=== PATIENT | female | born 1960 | race Caucasian/White ===

== ENCOUNTER 2024-09-23 07:16 | Day surgery (SDC) | payer OTHER, SELFPAY ==
--- OUTSIDE RECORDS SUMMARY | 2024-09-07 11:02 | XMS_ITS ---
Author Organization [facility] Address [address] [place] [address] Care Team Providers Care Clinical Dietetic Technician Name Role Phone Eda Adams Primary Care Provider Gilson Forrest [phone] Allergies Allergen (clinical drug ingredient) Drug/Non Drug Allergy documented on EMR Reaction Allergy Type Onset Date Status Substance with sulfonamide structure and antibacterial mechanism of action (substance) Sulfa Antibiotics closes airway Drug Allergy Active codeine Codeine closes airway Drug Allergy Act carola REASON FOR VISIT patient presents today for COLON SCREENING Social History Tobacco Use: Social History Observation Description Date Details (start date - stop date) Never Smoker NA - NA Tobacco Use/Smoking Question Answer Notes Patient is a nonsmoker Alcohol Screen Question Answer Notes Did you have a drink contain ing alcohol in the past year? Yes How often did you have a dri nk containing alcohol in the past year? Monthly or less (1 point) How many drinks did you have on a typical day when you were drinking in the past year? 1 or 2 drinks (0 point) How often did you have 6 or more drinks on one occasion in the past year? Never (0 point) Points 1 Interpretation Negative Section Notes: Occ alcohol, nonsmoker Problems Problem Type SNOMED Code ICD Code Onset Dates Problem Status W/U Status Risk Notes Problem Colon cancer screening (306262464) Colon cancer screening (Z12.11) Active confirmed Problem Pre-procedure evaluation check (674127679) Encounter for other preprocedural examination (Z01.818) Active confirmed Vital Signs Blood pressure systolic 00 mm Hg 06/16/19 25 Blood pressure diastolic 00 mm Hg 025 Height 5 ft 5.5 in in 06/16/2024 Weight 152 lbs 06/16/2024 BMI 24.91 kg/m2 06/16/2024 Encounters Encounter Location Date Provider Diagnosis [facility] [address] [facility] [address] [place] [address] 06/16/2024 Gilson Alston Colon cancer screeni ng Z12.11 and Encounter for other preprocedural examination Z01.818 Assessments Encounter Date Diagnosis (ICD Code) Assessment Notes Treatment Notes Treatment Clinical Notes Section Notes 06/16/2024 Colon cancer screening (ICD-10 - Z12.11) Overall, Kallie appears quite well. Given her age, good clinical appearance, and her last colonoscopy being over 10 years ago, I did recommend a followup colonoscopy for further screening process. We did review the rationale for that in regard to colon cancer prevention. Full consent was obtained for this, including risks of bleeding and perforation. The procedure will be done with monitored anesthesia care. Kallie was comfortable with this plan. Thank you again for allowing me to participate in Kallie's care. I shall continue to keep you advised of her progress. 06/16/2024 Encounter for other preprocedural examination (ICD-10 - Z01.818) Overall, Kallie appears quite well. Given her age, good clinical appearance, and her last colonoscopy being over 10 years ago, I did recommend a followup colonoscopy for further screening process. We did review the rationale for that in regard to colon cancer prevention. Full consent was obtained for this, including risks of bleeding and perforation. The procedure will be done with monitored anesthesia care. Kallie was comfortable with this plan. Thank you again for allowing me to participate in Kallie's care. I shall continue to keep you advised of her progress. Plan Of Treatment Future Test Test Name Order Date COLONOSCOPY 06/16/2024 Next Appt Details Follow Up: prn, Reason: Provider Name:Gilson Alston , 09/23/2024 08:30:00 AM, [address] [place] [address] , [place], [place], [phone], Progress Notes * JOSSIE BUCKOB:1960 ( 64 yo F)Acc No.[id number]:06/16/2024 Progress Notes Patient:?KALLIE BUCK Provider:?Gilson Alston MD :1960???Age:64 Y???Sex:Female D ate:06/16/2024 Address:[address] [place], [place] [id number] Pcp:Eda Adams Subjective: * Chief Complaints: * ???patient presents today fo r COLON SCREENING * HPI: ???incontinence:? I saw Kallie in the office today for evaluation of colorectal cancer screening. ?As you know, Kallie is a healthy 64-year-old female who presently feels very well. She describes having had a negative screening colonoscopy at approximately age 51 in [place]. She enjoys a good appetite and denies any significant heartburn or dysphagia. Her bowel movements are somewhat constipated, but as long as she drinks enough water during the day and eats enough dietary fiber her bowel movements become much more regular and comfortable. She denies any hematochezia nor melena. She denies abdominal pain, jaundice, or unintentional weight loss. She describes that her father had some type of colon resection in his 50s but is not certain as to whether or not it was for cancer. * ROS:?General/Constitutional:?Change in appetite?denies.?Chills?denies.?Fatigue?denies.?Ophthalmologic:?Comments?all negative.?ENT:?Comments?all negative.?Respiratory:?hemoptysis?denies.?Cough?denies.?Cardiovascular:?Chest pain?denies.?Orthopnea?denies.?Gastrointestinal:?Comments?See HPI for details.?Genitourinary:?Hematuria?denies.?Dysuria?denies.?Musculoskeletal:?Painful joints?denies.?Weakness?denies.?Skin:?Itching?denies.?Rash?denies.?Neurologic:?Headache?denies.?Seizures?denies.?Psychiatric:?Comments?all negative.? * Medical History:? * Surgical History:?Right thum b reconnected severed tendon * Hospitalization/Major Diagno stic Procedure:?No Hospitalization History. * Family History:?Father: dece ased, Colon resection for possible cancer in his late 50's.?Mother: .?Siblings: , liver failure pancreatitis, diagnosed with Colon polyps.? * Social History:?Tobacco Use:?Tobacco Use/Smoking?Patient is a?nonsmoker.?Drugs/Alcohol:?Alcohol Screen?Did you have a drink containing alcohol in the past year??Yes,?How often did you have a drink containing alcohol in the past year??Monthly or less (1 point), How many drinks did you have on a typical day when you were drinking in the past year??1 or 2 drinks (0 point),?How often did you have 6 or more drinks on one occasion in the past year??Never (0 point),?Points?1,?Interpretation?Negative.?Miscellaneous:?Marital status: . 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 ???Occ alcohol, nonsmoker. * Medications:?None * Allergies:?Sulfa Antibiotics : closes airwayCodeine: closes airwayyes[Allergies Verified] Objective: * Vitals:?Wt: 152 lbs, Ht: 5 f t 5.5 in, BMI:24.91 Index, BP: 00/00 mm Hg. * Examination: ???General Examination: ?GENERAL APPEARANCE:?pleasant, well nourished, well developed, in no acute distress.?EYES:?sclera non-icteric.?ORAL CAVITY:?mucosa moist.?NECK/THYROID:?no cervical lymphadenopathy, neck supple.?SKIN:?nonjaundiced, no spider angiomata.?HEART:?S1, S2 normal.?LUNGS:?clear to auscultation bilaterally.?ABDOMEN:?normal bowel sounds, no guarding or rigidity, no guarding or rigidity, no masses palpable, soft, nontender, nondistended.?EXTREMITIES:?no edema.?NEUROLOGIC:?alert and oriented.? Assessment: * Assessment: 1.?Encounter for other prepr ocedural examination - Z01.818 (Primary)?2.?Colon cancer screening - Z12.11? Overall, Kallie appears quit e well. Given her age, good clinical appearance, and her last colonoscopy being over 10 years ago, I did recommend a followup colonoscopy for further screening process. We did review the rationale for that in regard to colon cancer prevention. Full consent was obtained for this, including risks of bleeding and perforation. The procedure will be done with monitored anesthesia care. Kallie was comfortable with this plan. Thank you again for allowing me to participate in Kallie's care. I shall continue to keep you advised of her progress. Plan: * Treatment: * Procedure Codes:?3017F COLOR ECTAL CA SCREEN DOC [id number] TOBACCO NON-[id number] BP SCR NOT PRFRM REC REASON NOS * Follow Up:?prn * * Sign off status: Completed true * Provider:?Gilson Alston MD Date:? 025 Generated for Talia peters/Joe/Roroitting on:?09/07/2024 11:02 AM EDT History and Physical Notes * HPI (History of Present Illness) Category Sub-Category Detail Notes Category Not es incontinence I saw Kallie in the office today for evaluation of colorectal cancer screening. As you know, Kallie is a healthy 64-year-old female who presently feels very well. She describes having had a negative screening colonoscopy at approximately age 51 in [place]. She enjoys a good appetite and denies any significant heartburn or dysphagia. Her bowel movements are somewhat constipated, but as long as she drinks enough water during the day and eats enough dietary fiber her bowel movements become much more regular and comfortable. She denies any hematochezia nor melena. She denies abdominal pain, jaundice, or unintentional weight loss. She describes that her father had some type of colon resection in his 50s but is not certain as to whether or not it was for cancer. Examination Category Sub-Category Detail Notes Category Not es General Examination GENERAL APPEARANCE: pleasant , well nourished, well developed, in no acute distress HEAD: EYES: sclera non-icteric EARS: NOSE: THROAT: NECK/THYROID: no cervical lymphade nopathy, neck supple HEART: S1, S2 normal CHEST: LUNGS: clear to auscultatio n bilaterally ABDOMEN: normal bowel sounds, no guarding or rigidity, no guarding or rigidity, no masses palpable, soft, nontender, nondistended NEUROLOGIC: alert and oriented SKIN: nonjaundiced, no spi eve angiomata EXTREMITIES: no edema PERIPHERAL PULSES: BACK: BREASTS: MUSCULOSKELETAL: MALE GENITOURINARY: LYMPH NODES: RECTAL EXAM: FEMALE GENITOURINARY: ORAL CAVITY: mucosa moist
--- OUTSIDE RECORDS SUMMARY | 2024-09-07 11:03 | XMS_ITS | Patient Health Record ---
Author Organization [facility] Address [address] [place] [address] Care Team Providers Care Marketing Community Liaison Name Role Phone Eda Adams Primary Care Provider UnavailGilson Fernandez [phone] Allergies Allergen (clinical drug ingredient) Drug/Non Drug Allergy documented on EMR Reaction Allergy Type Onset Date Status Substance with sulfonamide structure and antibacterial mechanism of action (substance) Sulfa Antibiotics closes airway Drug Allergy Active codeine Codeine closes airway Drug Allergy Act carola Reason For Referral No Information Social History Tobacco Use: Social History Observation [...] Status Risk Notes Problem Colon cancer screening ([id number]) Colon cancer screening (Z12.11) Active confirmed Problem Pre-procedure evaluation check (847608671) Encounter for other preprocedural examination (Z01.818) Active confirmed Vital Signs Blood pressure diastolic 00 mm Hg 06/16/2024 Height 5 ft 5.5 in in 06/16/2024 Blood pressure systolic 00 mm Hg 06/16/2024 Weight 152 lbs 06/16/2024 BMI 24.91 kg/m2 06/16/2024 Encounters Encounter Location Date Provider Diagnosis [facility] [address] [place] [address] 06/16/2024 Gilson Alston Colon cancer screeni ng [...] Order Date COLONOSCOPY 06/16/2024 Next Appt Details Provider Name:Gilson Alston , 09/23/2024 08:30:00 AM, [address] [facility] , [place], [place], [id number], Insurance Providers Payer Name Payer Address Payer Phone Subscriber Number Group Number Insured Name Patient Relationship to Insured Coverage Start Date Coverage End Date [facility] [address] [place] [address] [id number] KALLIE BUCK Self - patient is the insured Medical (General) History Medical History History ICD Code Palpitations Denies PR,DM,CVA,Lung disease,renal dise ase Negative colonoscopy at age 51 Surgical History Surgery Date(Month/Year) Right thumb reconnected severed tendon
[2024-09-21 11:58] VITALS: BMI 25.3
[2024-09-23 07:47] VITALS: BMI 26.5
[2024-09-23 07:59] VITALS: BP 107/52; PULSE 58; RESP 16; TEMP 36.8; O2SAT 99
[2024-09-23] MEDS: Lactated Ringers 1,000 ML 100 ML IVCONT (08:12)
--- NOTE | 2024-09-23 08:30 | HO.ANESPROP2 ---
[facility] Past Medical History Medical History Palpitations Functional capacity: independent ambulation Surgical History Surgical History H/O colonoscopy Hx of thumb surgery History of Problems with Anesthesia: No Social History Social History Household Members Other:: live alone Are you a primary healthcare facility administrator to a significant other at home: No Do you presently have visiting nurse or other home services: No Patient Tobacco Use Status: Never used Tobacco Use of substances other than those prescribed or required for medical reasons: No Have you been hit, kicked, punched, or otherwise hurt by someone within the past year? If so, by whom?: No Are you DNR?: No Advance Directives: No Advance Directives Information Provided: Yes Patient : No Meds Allergies Allergy/AdvReac Type Severity Reaction Status Date / Time codeine Allergy Anaphylaxis Verified 09/21/24 11:57 Sulfa (Sulfonamide Allergy Anaphylaxis Verified 09/21/24 11:57 Antibiotics) Active Medications: Current Medications Lactated Ringer's (Lr) 1,000 mls @ 100 mls/hr IVCONT .Q10H HERB Last Admin: 09/23/24 08:12 Dose: 100 mls/hr Sodium Biphosphate/Sodium Phosphate (Sodium Phosphate,Mcclain-Dibasic 133 Ml Enema) 133 ml WI ONCE PRN PRN Reason: Poor Colonoscopy Prep Results Home Medications ?Medication ?Instructions ?Recorded ?Confirmed ?Last Taken ?Type No Known Home Meds 09/21/24 09/21/24 Unknown History Exam Height,Weight and Vital Signs: Height 5 ft 5 in Weight 72.2 kg Last Vital Signs Temp 98.3 F 09/23/24 07:59 Pulse 58 09/23/24 07:59 Resp 16 09/23/24 07:59 BP 107/52 L 09/23/24 07:59 Pulse Ox 99 09/23/24 07:59 O2 Del Method Room Air 09/23/24 07:59 Airway Mallampati Class: II TM Dist: >3cm Neck ROM: Full Loose/Missing/Broken Teeth: No Heart: RRR Lungs: CTA Assessment and Plan Assessment Anesthesia Assessment: Anesthesia Plan Discussed and Chart Reviewed Final Anesthetic Review History of Problems with Anesthesia: No NPO: Yes ASA Class: II Final Preanesthetic Review: Meds/Allgs Chart Reviewed, Consent Obtained/Reviewed and Anes Risks/Benef Reviewed Patient Risk: Low Procedure Risk: Low Anesthetic Plan Anesthetic Plan: MAC: Disposition: Standard PACU
[2024-09-23 09:59] VITALS: BP 115/53; PULSE 51; RESP 18; TEMP 36.5; O2SAT 98
--- NOTE | 2024-09-23 10:05 | PM.OP ---
Brief Operative Note Date of Service: 09/23/24 Pre-op diagnosis: Screening Post-op diagnosis: other (Polyps) Procedure: Colonoscopy to the cecum with bx/removal of polyp, cold snare polypectomy, and hot snare polypectomy in proximal Ascending colon Surgeon: Gilson Alston MD Anesthesia: MAC Was an Trailer Technician used for this Procedure?: No Estimated blood loss (mL): 2.0 Pathology: other (A. Transverse colon polyp B. Cecal polyp C. Proximal ascending colon polyp) Condition: stable Disposition: PACU
[2024-09-23 10:14] VITALS: BP 110/61; PULSE 55; RESP 18; O2SAT 98
--- NOTE | 2024-09-23 10:20 | OP_ITS ---
DATE OF SERVICE: 09/23/2024 SURGEON: Gilson Alston MD INDICATIONS: The patient presents for evaluation of colorectal cancer screening. Full consent was obtained from her for this, including risks of bleeding and perforation. PREOPERATIVE DIAGNOSIS: Colorectal cancer screening. POSTOPERATIVE DIAGNOSIS: PROCEDURE PERFORMED: Colonoscopy to the cecum with hot snare polypectomy, biopsy and removal of polyp, and cold snare polypectomy. ESTIMATED BLOOD LOSS: COMPLICATIONS: ANESTHESIA: Medication used, monitored anesthesia care. ASSISTANTS: SPECIMENS: POSTOPERATIVE DIAGNOSES: Colorectal cancer screening, colon polyps, melanosis coli, diverticulosis, and internal hemorrhoids. DESCRIPTION OF PROCEDURE: The patient was placed in the left lateral decubitus position. The digital rectal exam revealed no abnormalities. The Olympus video pediatric colonoscope was entered into the rectum and advanced easily to the cecum. Once in the cecum, I did identify cecal pouch with appendiceal orifice and a normal-appearing ileocecal valve. There was transillumination of light deep in the right lower quadrant. The entire cecum was well visualized and appeared normal although the mucosa was consistent with a melanosis coli. In the cecum, there was a 3 mm polyp, which was biopsied and completely removed with cold biopsy forceps. The scope was then slowly withdrawn assessing all mucosal surfaces carefully. Preparation was excellent. In the very proximal ascending colon, there was a flat, but raised approximately 4 mm x 12 mm polyp, which was removed in piecemeal fashion with hot snare polypectomy with pieces recovered by suction. The polypectomy site appeared clean, without any sign of residual polyp nor bleeding. In the transverse colon, there was an approximately 5 or 6 mm polyp, which was removed by cold snare polypectomy, recovered by suction. The polypectomy site appeared clean, without any sign of residual polyp nor significant bleeding. I did not visualize any other polyps, colitis, nor angiodysplasia. Again, there was melanosis coli throughout the colon. There was a mild amount of sigmoid diverticulosis. In the rectum, scope was retroflexed visualizing internal hemorrhoids, but no other pathology. The rectal mucosa appeared normal. Scope was straightened and withdrawn the patient. She tolerated the procedure well and was returned to recovery area in stable condition. IMPRESSION: 1. Colon polyps. 2. Melanosis coli. 3. Diverticulosis. 4. Internal hemorrhoids. PLAN: The results of the pathology will be checked. If the larger polyp in the proximal ascending colon is adenomatous or a serrated polyp, I would recommend a repeat colonoscopy within 1 year. She was advised not to use any aspirin and NSAIDs for at least a week. She will otherwise see me in the interim on a p.r.n. basis. MD LESLIE Flanagan/MJ / [phone]
[2024-09-23 10:28] VITALS: BP 110/65; PULSE 54; RESP 18; TEMP 36.4; O2SAT 98
== END 2024-09-23 11:03 | disposition home or self-care (01) ==
PROVIDERS: Visit Provider Internal Medicine
PROC: 0DJD8ZZ Inspection of Lower Intestinal Tract, Via Natural or Artificial Opening Endoscopic (ICD-10-PCS; CPT 45378; principal; 2024-09-23 08:30)
DX: Z12.11 Encounter for screening for malignant neoplasm of colon (principal); Z83.719 Family history of colon polyps, unspecified; D12.0 Benign neoplasm of cecum; D12.2 Benign neoplasm of ascending colon; D12.3 Benign neoplasm of transverse colon; K57.30 Diverticulosis of large intestine without perforation or abscess without bleeding; K64.8 Other hemorrhoids; K63.89 Other specified diseases of intestine; R00.2 Palpitations; Z98.890 Other specified postprocedural states; Z88.2 Allergy status to sulfonamides
CPT/HCPCS: 45385; 45380; 88305; J2003; J2704

== ENCOUNTER → 2025-04-27 10:05 | Outpatient (REF) | payer OTHER, SELFPAY ==
--- NOTE | 2025-04-27 10:10 | CA_ITS ---
Transthoracic Echocardiogram Patient (Last, First, Middle): Kallie Andrade, Gender: F Date of : 1960 Age: 65 Procedure Date: 04/27/2025 Procedure Type: Transthoracic Echocardiogram Location: OP Height: 165.1 cm Weight: 71.67 kg BSA: 1.79 m2 Heart Rate: bpm BP: 120 / 64 mmHg Lead Android Developer: KADIE Referring MD: Eda Adams MD Symptoms: PALPITATIONS, HEART MURMUR Study Quality: Adequate ECG Rhythm: Sinus Conclusions: - The left ventricular systolic function is normal. The calculated ejection fraction is 66% by biplane method. - No obvious valvular pathology seen on this study. - Small plaque is seen in the sino tubular ridge. Findings Left Ventricle Normal left ventricular cavity size. There is normal left ventricular wall thickness. The left ventricular systolic function is normal. The calculated ejection fraction is 66% by biplane method. There is no evidence of regional wall motion abnormalities. Diastolic function is normal for age. Right Ventricle Normal right ventricular cavity size and systolic function. Atria Both atria are normal in size. Aortic Valve There is a normal trileaflet aortic valve. There is no aortic valve stenosis. There is no aortic valve regurgitation. Mitral Valve The mitral valve appears normal. There is no mitral valve regurgitation. There is no mitral valve stenosis. Pulmonic Valve The pulmonic valve is likely normal. Tricuspid Valve There is trace tricuspid valve regurgitation. There is no evidence of pulmonary hypertension. Great Vessels The asc aorta is normal in size. Small plaque is seen in the sino tubular ridge. Venous The inferior vena cava is normal in size and collapses greater than 50% with inspiration. Pericardium/Pleural There is no evidence of pericardial effusion. Prior Study Comparison No prior study available for comparison. Recommendations, Care & Conclusions No obvious valvular pathology seen on this study. Measurements 2D Linear Measurements IVSd: 0.86 0.6-0.9/0.6-1.0 cm LVIDd: 4.78 3.9-5.3/4.2-5.9 cm LVIDd Index: 2.67 2.4-3.2/2.2-3.1 cm/m2 LVIDs: 2.87 2.0-3.6 cm LVPWd: 0.82 0.7-1.1 cm LA Diam: 3.40 2.7-3.8/3.0-4.0 cm LAIDs Index: 1.90 1.5-2.3 cm/m2 LV Mass: 166.40 67-162/88-224 g LV Mass Index: 92.96 43-95/49-115 g/m2 LVOT Diam: 1.90 3.0+(-)1.3 cm 2D Systolic Function EF 4C: 65.60 >55% EF 2C: 67.70 >55% EF BiP: 65.90 >55% Mitral Valve MV Pk E: 0.81 MV PK A: 0.73 MV Decel Time: 172.00 E/A: 1.10 E'Lateral: 8.16 E'Medial: 7.40 E/E' Med: 10.90 E/E' Lat: 9.90 PHT: 50.00 MVA PHT: 4.40 Decel [place]: 4.70 Aortic Valve AoV Pk Cristhian: 1.56 AoV Mn Cristhian: 1.12 AoV VTI: 0.37 AoV Pk Grad: 10.00 Aov Mn Grad: 6.00 LINDA Cont.VTI: 2.64 LVOT LVOT Pk Cristhian: 1.41 LVOT Mn Cristhian: 0.97 LVOT VTI: 0.34 LVOT Pk Grad: 8.00 LVOT Mn Grad: 4.00 LVOT Diam: 1.90 LVOT Area: 2.84 Diastolic Function MV Pk E: 0.81 MV Pk A: 0.73 E/A: 1.10 E'Medial: 7.40 E/E' Med: 10.90 E' Laterial: 8.16 E/E' Lat: 9.90 Right Ventricle TAPSE (mm): 2.87 TVS' Cristhian: 12.10 Tricuspid Valve TR Pk Cristhian: 1.66 TR Pk Grad: 11.00 RA Press: 3.00 RVSP: 14.00 Great Vessels Aorta Sinus of Valsalva: 3.17 2.0-3.[address] Ridge: 2.30 1.7-3.4 cm Ao Asc: 3.40 2.1-3.4 cm Pulmonary Veins Pulm Vein S/D 1.50 Updated in Other Vendor System with Status of Final Ricardo Abdalla MD electronically signed on 04/28/2025 3:02:55 PM with status of Final
== END ==
LOC: HO.CARD 10:05
PROVIDERS: PCP Internal Medicine; Visit Provider Internal Medicine
DX: R00.2 Palpitations (principal); R01.1 Cardiac murmur, unspecified; Z68.26 Body mass index [BMI] 26.0-26.9, adult
CPT/HCPCS: 36415; 84443; 93306

== ENCOUNTER → 2025-04-27 10:10 | Outpatient (BNV) | payer OTHER, SELFPAY | PROVIDERS: PCP Internal Medicine; Visit Provider Internal Medicine | DX: R01.1 Cardiac murmur, unspecified (principal); I70.0 Atherosclerosis of aorta | CPT/HCPCS: 93306 ==